=== PATIENT | male | born 1995 | race Two or more races ===

== ENCOUNTER 2016-08-26 20:37 | Emergency (ER) | payer BC, MEDICAID ==
[~2016-08-26] VITALS: Ht 188 cm; Wt 109.2 kg
[2016-08-26 20:45] VITALS: BP 145/84
== END 2016-08-26 22:11 | disposition home or self-care (01) ==
LOC: ED 22:00
DX: J02.8 Acute pharyngitis due to other specified organisms (principal); J00 Acute nasopharyngitis [common cold]; J45.909 Unspecified asthma, uncomplicated
CPT/HCPCS: 99281

== ENCOUNTER → 2016-10-10 | Outpatient (CLI) | payer MEDICAID | END | disposition home or self-care (01) | LOC: CFH 14:02 | PROVIDERS: ATTEND Genetic Counselor, MS | DX: N64.52 Nipple discharge (principal) | CPT/HCPCS: 76642; G0204 ==

== ENCOUNTER 2018-02-06 15:45 | Emergency (ER) | payer MEDICAID ==
[~2018-02-06] VITALS: Ht 188 cm; Wt 107.0 kg
[2018-02-06 15:52] VITALS: BP 144/87
[2018-02-06] MEDS ORDERED: ALBUTEROL/IPRATROPIUM 2.5MG/0.5MG, 3 ML NPPB ONE (16:00)
[2018-02-06] MEDS ORDERED: ALBUTEROL/IPRATROPIUM 2.5MG/0.5MG, 3 ML ONE (16:25)
[2018-02-06] MEDS ORDERED: IBUPROFEN 200 MG TABLET PO ONE (16:30)
[2018-02-06] MEDS ORDERED: IBUPROFEN 200 MG TABLET ONE (16:41)
== END 2018-02-06 17:08 | disposition home or self-care (01) ==
LOC: ED 17:00
DX: S93.402A Sprain of unspecified ligament of left ankle, initial encounter (principal); I10 Essential (primary) hypertension; J45.909 Unspecified asthma, uncomplicated; X50.1XXA Overexertion from prolonged static or awkward postures, initial encounter; Y99.8 Other external cause status; Y93.89 Activity, other specified; Y92.89 Other specified places as the place of occurrence of the external cause
CPT/HCPCS: 71046; 94640; 99284